=== PATIENT | female | born 1980 | race Caucasian/White ===

== ENCOUNTER 2017-05-06 10:09 | Day surgery (SDC) | payer OTHER ==
--- NOTE | 2017-05-02 18:31 | HP ---
PREOPERATIVE HISTORY AND PHYSICAL: DATE OF ADMISSION/SURGERY: 05/06/17 [facility] DATE OF OFFICE VISIT: 04/30/17 ATTENDING PROVIDER: Dr. Anabel Porter.* (DICTATED BY DINAH RESENDIZ) PROCEDURE: Left knee arthroscopic surgery. CHIEF COMPLAINT: Left knee. HISTORY OF PRESENT ILLNESS: Viridiana is a 36-year-old female who presents to clinic for left knee pain and swelling due to a loose body as well as patellofemoral arthritis. She has failed conservative measures and has therefore agreed to undergo a left knee arthroscopic surgery with Dr. Porter on 05/06/17. PAST MEDICAL HISTORY: depression, anxiety, gestational diabetes. PAST SURGICAL HISTORY: Eye surgery in 1981 and wisdom teeth. The patient denies complications with anesthesia; however, does report that epidurals usually do not work well for her. MEDICATIONS: 1. Meloxicam 15 mg 1 by mouth every day. 2. Vitamin D 1000 units 1 by mouth every day. 3. Multivitamin 1 by mouth every day. 4. Biotin 1 daily. 5. Magnesium citrate 1 daily. ALLERGIES: No known drug allergies. FAMILY HISTORY: Positive for stroke in paternal grandparents. SOCIAL HISTORY: She lives with her spouse. 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 She denies tobacco use. She reports occasional alcohol consumption. She exercises occasionally. She is right-hand dominant. REVIEW OF SYSTEMS: A 14-point review of systems was reviewed with the patient, positive for current complaint, otherwise negative. Denies fevers, chills. Denies chest pain, shortness of breath. Denies history of bleeding disorder. Denies history of DVT or PE. PHYSICAL EXAMINATION GENERAL: This is a 36-year-old well-developed, well-nourished female in no acute distress, alert, and oriented x3. Appropriate mood and affect. VITAL SIGNS: Height 72, weight 141, pulse 70, blood pressure 92/64, respiratory rate 16, BMI 19.1. HEENT: Normocephalic, atraumatic. PERRLA. Throat: Clear. NECK: Supple. PULMONARY: Lungs clear to auscultation bilaterally. No wheezing, rhonchi, or rales. CARDIO: Regular rate and rhythm. S1, S2. No murmurs, gallops, or rubs. No edema. ABDOMEN: Positive bowel sounds, soft, nontender. NEURO: Alert and oriented x3. Cranial nerves grossly intact. Sensation is intact to light touch. MUSCULOSKELETAL: Left lower extremity, the skin is intact. No warmth or erythema. Mild effusion. Slight valgus alignment. Range of motion 0 to 130 degrees. Nontender over the joint line. Tender over the patellar facet. Stable varus and valgus stress. Stable Evi. Negative posterior drawer. Calf is soft, nontender. +2 PT pulses. Sensation intact to light touch distally. DIAGNOSTIC STUDIES: MRI of the left knee reveals effusion, chondromalacia patella with cartilage loss and evidence of patellofemoral arthritis as well as a loose body. IMPRESSION: Left knee loose body and chondromalacia patella. PLAN: The patient is scheduled to undergo a left knee arthroscopic surgery with Dr. Porter on 05/06/17 for removal of loose body and evaluation of the patellofemoral joint. The patient will return to the office 10 to 14 days postop for followup and suture removal. Percocet will be used for postop pain management. DINAH RESENDIZ [id number]/[facility] #: [id number] [facility] HOSPITALGladis
[~2017-05-06 10:09] MED LIST: Buffered Lidocaine 0.9% SYRIN* 5 ML/SYR SYRINGE INTRADERM ONE; DiMENhydriNATE IV* 50 MG/ML VIAL IV PUSH PRN; Famotidine IV* 10 MG/ML 2 ML (20 mg) IV ONE; Morphine INJ* 2 MG/ML 1 ML CARPUJECT IV PRN; Naloxone* 0.4 MG/ML 1 ML VIAL IV PRN; Ondansetron INJ* 2 MG/ML VIAL IV PRN; PROCHLORPERAZINE INJ 5 MG/ML 2 ML VIAL IV PRN; Scopolamine 1.5 mg* PATCH TRANSDERM PRN; fentaNYL* 50 MCG/ML 2 ML VIAL (100 MCG VIAL) IV PRN; oxyCODONE/Acetamin 5/325 MG* TAB PO PRN
[2017-05-06] MEDS ORDERED: ceFAZolin 2 GM PREMIX (*) 2 GM/50 ML BAG IVPB ONE (10:39)
[2017-05-06] MEDS ORDERED: Famotidine IV* 10 MG/ML 2 ML (20 mg) ONE (10:39)
[2017-05-06] MEDS ORDERED: fentaNYL* 50 MCG/ML 2 ML VIAL (100 MCG VIAL) ONE (11:08)
[2017-05-06] MEDS ORDERED: Midazolam* 1 MG/ML 2 ML VIAL (2 MG) ONE (11:08)
[2017-05-06] MEDS ORDERED: KETAMINE HCL* 50 MG/ML 10 ML VIAL ONE (11:08)
[2017-05-06] MEDS ORDERED: Lidocaine 1% MPF wEPI 200,000* 30 ML SDV ONE (13:19)
[2017-05-06] MEDS ORDERED: Bupivacaine 0.25% SDV* 30 ML ONE (13:37)
[2017-05-06] MEDS ORDERED: PROCHLORPERAZINE INJ 5 MG/ML 2 ML VIAL ONE (14:04)
[2017-05-06] MEDS ORDERED: Dexamethasone IV* 4 MG/ML 1 ML (4 MG) ONE (14:04)
[2017-05-06] MEDS ORDERED: Lidocaine 2% PF * 5 ML VIAL ONE (14:04)
[2017-05-06] MEDS ORDERED: Ondansetron INJ* 2 MG/ML VIAL ONE (14:04)
[2017-05-06] MEDS ORDERED: Ketorolac INJ* 30 MG/ML 1 ML VIAL ONE (14:04)
[2017-05-06] MEDS ORDERED: Propofol* 10 MG/ML 20 ML BTL IV PUSH ONE (14:04)
[2017-05-06] MEDS ORDERED: methylPREDNISolone ACETATE 80* 80 MG/ML 1 ML VIAL ONE (14:30)
[2017-05-06 15:34] VITALS: BP 109/60
--- NOTE | 2017-05-08 21:52 | OP ---
CC: PCP, DINAH Guzman * DATE OF SURGERY: 05/06/17 - [facility] DATE OF : 80 SURGEON: Anabel Porter MD SALES EFFECTIVENESS MANAGER: DINAH Duarte. An museum assistant was needed for the entirety of the case to help with positioning, retraction, and was utilized throughout all portions of the case. ANESTHESIOLOGIST: Dr. Jauregui. ANESTHESIA: General. PRE-OP DIAGNOSIS: Left knee loose body with mild osteoarthritis. POST-OP DIAGNOSIS: Left knee loose body with chondrosis of the patellofemoral joint as well as the lateral compartments. OPERATIVE PROCEDURE: 1. Left knee arthroscopy with removal of loose body, numerous, only one was about 5 mm. 2. Chondroplasty of the patellofemoral and the lateral compartments. 3. Intra-articular injection of 80 mg of Depo-Medrol. INDICATIONS: Viridiana Lindsay is a 36-year-old female who several weeks ago noticed a significant knee effusion. She had no obvious catching and locking symptoms, but she would have recurrent effusions that occurred after minimal trauma. She had an MRI that was done that demonstrated small cartilaginous loose bodies. Risks and benefits of surgery versus nonoperative treatment were discussed at length. She has done a course of physical therapy, but she failed conservative management. Risks and benefits of surgery were discussed at length , included but are not limited to bleeding, infection, damage to nerves, vessels , surrounding structures, wound nonhealing, persistent pain, need for further surgery, scarring, stiffness, incomplete relief of symptoms, risk of anesthesia , as well as risk of DVT. She has elected to proceed. DESCRIPTION OF PROCEDURE: The patient was greeted in the preoperative area by the attending surgeon. Correct extremity was marked, consent was confirmed. The patient was brought back to the operating suite where she was placed in a supine position on the operating table. She then underwent general anesthesia with LMA intubation, after which an unsterile tourniquet was placed high on the left thigh. The lateral post was positioned and the left leg was then prepped and draped in the usual sterile fashion beginning with chlorhexidine soap, scrub and alcohol wipe and a final prep with ChloraPrep. After appropriate surgical pause indicating site and side of the procedure, administration of antibiotics, the knee was intra-articularly injected with 1% lidocaine with epi. The left lateral port was made sharply with the 11-blade. The scope was introduced into the joint and the joint was examined. There were small loose bodies that were evident. There was a 5 mm loose body that was evident in the superior pouch. There were grade 0 to 1 changes in the patella except for the lateral facet had grade 2 changes and a small area where grade 3 changes. The trochlea had grade 1 to 2 changes and bubbling of the cartilage. Medial and lateral gutters were intact, had small loose debris. The ACL was intact. PCL was intact. Medial compartment was examined. There were grade 0 to 1 changes in the medial femoral condyle, medial plateau and the medial meniscus was intact. The anteromedial portal was made sharply with the 11-blade and the probe was used to check the medial meniscus which was intact. The knee was placed with figure-of- four and the lateral compartment was then checked. The lateral meniscus was intact, but there were grade 2 changes with unstable flaps in the lateral plateau. This was debrided back and shaved using the shaver. Lateral femoral condyle had grade 0 to 1 changes. The knee was taken through full extension and the grasper was used to remove the loose body. In the superior pouch, the shaver was used to do a chondroplasty of the patella, where the cartilaginous fragment was thought to have raised. Once the procedure was complete, the knee was thoroughly lavaged. The wounds were copiously irrigated with sterile saline. The portals were closed with 3-0 nylon in an interrupted fashion and the knee was intra- articularly injected with 0.25% Marcaine plain and 80 mg of Depo-Medrol. Sterile dressings were applied. Cryo/Cuff was applied. She was awoken from anesthesia and transferred to the PACU in stable condition. POSTOPERATIVE PLAN: She will be weightbearing as tolerated. Crutches for 3 to 5 days. She will be allowed to bend and straighten. She will be discharged on pain medications. DVT prophylaxis was considered, but deferred due to no previous personal or family history. I will see the patient back in 10 to 14 days. [id number]/[facility] #: [id number] JOSELO
[2017-05-09] MEDS ORDERED: Scopolamine PATCH Remove* 1 NOTE MISC PATCH OFF ONE (08:36)
== END 2017-05-06 15:01 | disposition home or self-care (01) ==
LOC: OREAST 10:09
PROVIDERS: ATTEND Orthopaedic Surgery
DX: M23.42 Loose body in knee, left knee (principal); M93.862 Other specified osteochondropathies, left lower leg; M25.462 Effusion, left knee
CPT/HCPCS: 81025; J0690; J0780; J1040; J1100; J1885; J2001; J2250; J2405; J2704; J3010